=== PATIENT | male | born 1945 | race Caucasian/White ===

== ENCOUNTER 2018-01-11 00:41 | Emergency (ER) | payer MEDICARE, MEDICAID ==
[~2018-01-11] VITALS: Ht 165.1 cm; Wt 82.7 kg
[~2018-01-11 00:41] MED LIST: LOSA1TAB42 PO; [UNRECOGNIZED DRUG - OTHER]
[2018-01-11] MEDS ORDERED: METF-844 PO (00:59)
[2018-01-11 01:07] LABS: GLUCOSE,POINT OF CARE 141 MG/DL (70-110)
[2018-01-11 02:47] VITALS: BP 135/65
== END 2018-01-11 03:38 | disposition left against medical advice (07) ==
LOC: EMS 00:42
DX: K12.2 Cellulitis and abscess of mouth (principal); E11.9 Type 2 diabetes mellitus without complications; E78.00 Pure hypercholesterolemia, unspecified; Z53.21 Procedure and treatment not carried out due to patient leaving prior to being seen by health care provider
CPT/HCPCS: 82962